=== PATIENT | male | born 1965 | race Caucasian/White ===

== ENCOUNTER 2018-09-25 22:52 | Inpatient (IN) | payer BC ==
[~2018-09-25] VITALS: Ht 172.7 cm; Wt 109.8 kg
[2018-09-25 22:58] VITALS: Ht 172.7 cm; Wt 109.8 kg
[2018-09-26 00:44] LABS: BASOPHIL % 1.2 % (0-2); PLATELET COUNT 167 x10^3mcL (130-400); RED CELL DISTRIBUTION WIDTH 14.1 % (11.5-14.5)
[2018-09-26 01:00] LABS: CALCIUM 8.5 mg/dL (8.5-10.1); CARBON DIOXIDE 22.9 mmol/L (21-32); CHLORIDE SERUM 108 mmol/L (98-107); CREATININE SERUM 0.9 mg/dL (0.7-1.3); GFR1 > 60 mL/min; GLUCOSE SERUM 126 mg/dL (74-106); POTASSIUM SERUM 3.7 mmol/L (3.5-5.1); SODIUM SERUM 143 mmol/L (136-145)
[2018-09-26 01:13] LABS: ALBUMIN 3.5 g/dL (3.4-5.0); ALKALINE PHOSPHATASE 63 U/L (46-116); ALT/SGPT 29 U/L (16-63); AST/SGOT 25 U/L (15-37); BILIRUBIN TOTAL 0.3 mg/dL (0.20-1.00); TOTAL PROTEIN, SERUM 6.8 g/dL (6.4-8.2)
[2018-09-26] MEDS ORDERED: CARVEDILOL6.25 M1 PO (01:55)
[2018-09-26] MEDS ORDERED: ELIQUIS5 MG PO (01:55)
[2018-09-26] MEDS ORDERED: FLUOXETINE HYDR10 M1 PO (01:55)
[2018-09-26] MEDS ORDERED: AMLODIPINE BES2.5 M1 PO (01:56)
[2018-09-26] MEDS ORDERED: LISINOPRIL40 MG PO (01:56)
[2018-09-26] MEDS ORDERED: BREO ELLIPTA1 POW IH (01:56)
[2018-09-26 03:42] LABS: FREE T4 1.4 ng/dL (0.76-1.46); FREE THYROXINE INDEX 3.4 ug/dL (1.4-4.5); T4(THYROXINE) 9.3 ug/dL (4.7-13.3)
[2018-09-26 04:18] LABS: T3 TOTAL 1.1 ng/mL
[2018-09-26 04:58] LABS: microscopic required? NO
[2018-09-26 05:16] LABS: urine erythrocyte NEGATIVE (NEGATIVE)
[2018-09-26 05:26] LABS: AMPHETAMINE QUAL UR NONE DETECTED (See below)
[2018-09-26 05:57] LABS: BASOPHIL % 0.7 % (0-2); PLATELET COUNT 146 x10^3mcL (130-400)
[2018-09-26 06:26] LABS: CALCIUM 8.2 mg/dL (8.5-10.1); CARBON DIOXIDE 27.8 mmol/L (21-32); CHLORIDE SERUM 106 mmol/L (98-107); CREATININE SERUM 0.9 mg/dL (0.7-1.3); GFR1 > 60 mL/min; GLUCOSE SERUM 125 mg/dL (74-106); MAGNESIUM 1.9 mg/dL (1.8-2.4); PHOSPHOROUS 3.5 mg/dL (2.5-4.9); POTASSIUM SERUM 3.3 mmol/L (3.5-5.1); SODIUM SERUM 141 mmol/L (136-145)
[2018-09-26 09:20] VITALS: BP 135/92
[2018-09-26 10:42] VITALS: BP 135/92
[2018-09-26 16:17] VITALS: BP 125/79
[2018-09-26 20:48] VITALS: BP 140/72
[2018-09-27 05:57] VITALS: BP 124/74
[2018-09-27 06:41] LABS: CALCIUM 8.4 mg/dL (8.5-10.1); CARBON DIOXIDE 26.3 mmol/L (21-32); CHLORIDE SERUM 106 mmol/L (98-107); CREATININE SERUM 0.9 mg/dL (0.7-1.3); GFR1 > 60 mL/min; GLUCOSE SERUM 138 mg/dL (74-106); PHOSPHOROUS 3.3 mg/dL (2.5-4.9); POTASSIUM SERUM 3.6 mmol/L (3.5-5.1); SODIUM SERUM 139 mmol/L (136-145)
[2018-09-27 07:02] LABS: BASOPHIL % 0.2 % (0-2); PLATELET COUNT 156 x10^3mcL (130-400); RED CELL DISTRIBUTION WIDTH 14.1 % (11.5-14.5)
[2018-09-27 09:32] VITALS: BP 140/79
[2018-09-27 12:33] VITALS: BP 125/76
[2018-09-27 17:35] VITALS: BP 123/72
[2018-09-27 20:41] VITALS: BP 142/77
[2018-09-28 05:31] VITALS: BP 147/90
[2018-09-28 05:32] VITALS: BP 140/83
[2018-09-28 07:02] LABS: CALCIUM 7.9 mg/dL (8.5-10.1); CARBON DIOXIDE 27.4 mmol/L (21-32); CHLORIDE SERUM 106 mmol/L (98-107); CREATININE SERUM 0.9 mg/dL (0.7-1.3); GFR1 > 60 mL/min; GLUCOSE SERUM 195 mg/dL (74-106); POTASSIUM SERUM 3.9 mmol/L (3.5-5.1); SODIUM SERUM 140 mmol/L (136-145)
[2018-09-28 07:03] LABS: BASOPHIL % 0.2 % (0-2); PLATELET COUNT 139 x10^3mcL (130-400); RED CELL DISTRIBUTION WIDTH 14.2 % (11.5-14.5)
[2018-09-28 09:00] VITALS: BP 137/82
[2018-09-28 12:34] VITALS: BP 152/100
[2018-09-28 15:33] VITALS: BP 154/96
== END 2018-09-28 16:05 | disposition home or self-care (01) | DRG 177 ==
LOC: ED 22:52 → DU 09-26 01:24
PROVIDERS: Emergency Medicine; ADMIT Family Medicine
DX: J69.0 Pneumonitis due to inhalation of food and vomit (principal); J96.20 Acute and chronic respiratory failure, unspecified whether with hypoxia or hypercapnia; I42.9 Cardiomyopathy, unspecified; I50.9 Heart failure, unspecified; F17.210 Nicotine dependence, cigarettes, uncomplicated; I48.2 Chronic atrial fibrillation; J44.9 Chronic obstructive pulmonary disease, unspecified; I11.0 Hypertensive heart disease with heart failure; Z95.0 Presence of cardiac pacemaker; Z82.49 Family history of ischemic heart disease and other diseases of the circulatory system
CPT/HCPCS: 83880; 84439; 87804; 94150; J0456; J0696; J2270; J2920; J2930; J7050; J7620; J7626; Q0092

== ENCOUNTER 2018-10-03 18:11 | Emergency (ER) | payer BC ==
[~2018-10-03] VITALS: Ht 172.7 cm; Wt 111.1 kg
[~2018-10-03 18:11] MED LIST: AMLODIPINE BES2.5 M1 PO; BREO ELLIPTA1 POW IH; CARVEDILOL6.25 M1 PO; ELIQUIS5 MG PO; FLUOXETINE HYDR10 M1 PO; LISINOPRIL40 MG PO
[2018-10-03 18:16] VITALS: BP 142/86; Ht 172.7 cm; Wt 111.1 kg
== END 2018-10-03 19:27 | disposition home or self-care (01) ==
LOC: ED 18:11
DX: M79.661 Pain in right lower leg (principal); M79.662 Pain in left lower leg; G62.9 Polyneuropathy, unspecified; I10 Essential (primary) hypertension; J44.9 Chronic obstructive pulmonary disease, unspecified; I48.91 Unspecified atrial fibrillation; Z95.0 Presence of cardiac pacemaker
CPT/HCPCS: Q0092